=== PATIENT | female | born 1965 | race Caucasian/White ===

== ENCOUNTER → 2020-02-22 | Outpatient (CLI) | payer BC ==
--- NOTE | 2020-02-22 09:28 | KCIC ---
STUDY: MRI of the right knee without contrast INDICATION: Persistent knee pain. Crepitus and instability. COMPARISON: 02/17/2020 radiographs TECHNIQUE: Multiplanar MR imaging of the right knee performed without the use of intravenous or intra-articular contrast. FINDINGS: Menisci: Tearing of the medial meniscus mainly from the mid body segment through the posterior horn consisting of free edge and horizontal/oblique undersurface tear defects. Thread Marker tearing seen at the posterior horn on image 11 series 9 and posterior body/horn junction on image 9 series 7. Complex tearing of much of the lateral meniscus with areas of maceration. Cruciate ligaments: Intact. Collateral ligaments: Edema deep and superficial to the medial collateral ligament complex favored reactive and the ligaments themselves are intact. The lateral collateral ligament complex is intact. Tendons: Intact. Cartilage: Patellofemoral: Hindered assessment on the axial T2 sequence due to pulsation artifact. There appears to be some partial thickness patellar chondrosis but no full-thickness defect. Scattered partial-thickness trochlear chondrosis but with more focal high-grade chondral loss at the inferior margin of the medial trochlea where there is subchondral cystic change, image 14 series 7. Lateral compartment: High-grade and full-thickness chondral loss involving the posterior nonweightbearing lateral femoral condyle and posterior lateral tibial plateau to the greatest degree. Correspondingly subchondral edema/cystic change is greatest at the posterior nonweightbearing lateral femoral condyle. Medial compartment: Focal high-grade/full-thickness or near full-thickness chondral defect at the weightbearing medial femoral condyle measuring approximately 6 mm transverse by 7 mm AP, image 12 series 8. Less pronounced chondrosis at a few additional locations. Bones: No acute fracture or aggressive marrow signal abnormality. Scattered small osteophytes greatest at the lateral joint line. Miscellaneous: Small/moderate knee joint effusion with synovitis and presumed small loose bodies. Scattered subcutaneous edema. IMPRESSION: 1. Complex tearing of both menisci with the lateral meniscus involved to a greater degree than the medial meniscus. Portions of the lateral meniscus are somewhat macerated. 2. 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 Associated subchondral edema/cystic change at several locations most pronounced at the posterior nonweightbearing lateral femoral condyle. 3. Small/moderate knee joint effusion with synovitis and probable small loose bodies. Electronically signed by: LINDSEY LAKE MD (02/22/2020 9:25 AM) [id number]
== END | disposition home or self-care (01) ==
LOC: KCIC MRI 07:36
PROVIDERS: ATTEND Orthopaedic Surgery
DX: M17.11 Unilateral primary osteoarthritis, right knee (principal); M25.461 Effusion, right knee
CPT/HCPCS: 73721